=== PATIENT | female | born 1985 | race Caucasian/White ===

== ENCOUNTER → 2019-05-24 14:39 | Outpatient (CLI) | payer MEDICAID, SELFPAY ==
--- NOTE | 2019-05-24 14:41 | US_ITS ---
US transvaginal HISTORY: Dysfunctional uterine bleeding ITS.REASON: DUB ORDERING PHYSICIAN: Dereck Vail MD PATIENT AGE: 34 years Comparison: None FINDINGS: The uterus is 9 x 4.5 x 5 cm with a combined endometrial thickness of 15 mm. The cervix is enlarged measuring approximately 5 cm and is hypervascular with some heterogeneous echogenicity. Right ovary is 4 x 2.5 cm. Left ovary is 5 x 3 cm. There is a 2 cm cyst on the right ovary and there are several small cysts on the left ovary measuring up to 1.9 cm. There is trace amount of cul-de-sac fluid. IMPRESSION: 1. Bulky uterus with thickened endometrium 2. Enlarged cervix/cervical mass. Correlation with physical exam suggested 3. Small bilateral ovarian cysts with trace fluid in the cul-de-sac
== END ==
PROVIDERS: Visit Provider Obstetrics & Gynecology
DX: N93.8 Other specified abnormal uterine and vaginal bleeding (principal)
CPT/HCPCS: 76830

== ENCOUNTER → 2019-12-23 09:29 | Outpatient (CLI) | payer MEDICAID, SELFPAY ==
--- NOTE | 2019-12-23 09:49 | US_ITS ---
PROCEDURE: US ABDOMEN LIMITED CLINICAL INDICATION: MILD TRANSAMINITIS,CERVICAL CA Cervical cancer, elevated liver enzymes COMPARISON: No exams were available for comparison FINDINGS: PANCREAS: Unremarkable. No obvious mass or abnormal fluid collection. No ductal dilatation LIVER: There is diffuse increased echogenicity of the liver consistent with fatty liver. No focal liver lesions demonstrated. Homogeneous echogenicity. No intrahepatic biliary ductal dilatation evident. There is appropriate direction of blood flow within a non dilated portal vein RIGHT KIDNEY: Unremarkable. Normal size and echogenicity. No hydronephrosis GALLBLADDER: Prior cholecystectomy. Common bile duct is normal at 4 mm. IMPRESSION: Status post cholecystectomy. Hepatic steatosis Dictated by: Nino Lizama MD 12/23/2019 15:55 Electronically signed by Nino Lizama MD in [place] 12/23/2019 15:55
[2019-12-23 12:05] LABS: Albumin Level 3.9 g/dL (3.4-5.0); Albumin/Globulin Ratio 1.1 (1.1-1.8); Alkaline Phosphatase 103 U/L (46-116); Anion Gap 15.9 mEq/L (5-15); Aspartate Amino Transferase 152 U/L (15-37); Bilirubin,Total 0.3 mg/dL (0.2-1.0); Blood Urea Nitrogen 8 mg/dL (7-18); Calcium 8.9 mg/dL (8.5-10.1); Carbon Dioxide 24 mmol/L (21.0-32.0); Chloride 106 mmol/L (98-107); Creatinine,Serum 0.81 mg/dL (0.55-1.02); Estimated Glomerular Filt Rate 80 ml/min (>60); GFR (African American) 97 ML/MIN (>60); Globulin 3.7 gm/dl (1.3-3.2); Glucose 86 mg/dL (74-106); Sodium 141 mmol/L (137-145); Total Protein,Serum 7.6 g/dL (6.4-8.2)
[2019-12-23 12:11] LABS: Alanine Aminotransferase 127 U/L (9-52); Potassium 4.9 mmoL/L (3.5-5.1)
[2019-12-24 09:34] LABS: Hep A Ab, IgM Negative (Negative); Hepatitis B Core Antibody IgM Negative (Negative); Hepatitis B Surface Antigen Negative (Negative)
[2019-12-24 19:12] LABS: Hepatitis C Antibody <0.1 s/co ratio (0.0-0.9)
== END ==
PROVIDERS: Visit Provider Obstetrics & Gynecology Gynecologic Oncology
DX: C53.9 Malignant neoplasm of cervix uteri, unspecified (principal); R74.0 Nonspecific elevation of levels of transaminase and lactic acid dehydrogenase [LDH]
CPT/HCPCS: 36415; 76705; 80053; 80074

== ENCOUNTER 2020-06-20 14:36 | Emergency (ER) | payer MEDICAID, SELFPAY ==
[2020-06-20 14:37] VITALS: BP 135/94; PULSE 101; RESP 19; TEMP 36.8; O2SAT 98; BMI 26.6
--- NOTE | 2020-06-20 14:59 | HMH.EDUTC ---
[facility] [place] Disposition Clinical Impression: Sinusitis Qualifiers: Sinusitis location: unspecified location Chronicity: unspecified Qualified Code(s): J32.9 - Chronic sinusitis, unspecified Disposition: Home, Self-Care Condition on Discharge: Good Instructions: Sinusitis, Sinus Headache, DI for Sinusitis, Preventing the Spread of Coronavirus Discharge Instructions Additional Instructions: *Monitor Temp, Over the counter Motrin or Tylenol as directed/as needed Tylenol every 4 hours and Motrin every 6 hours (as long as your family doctor has told you that you can take it) for fever or pain. and straight to ER if unable to lower temp less than 101.0 after medication given *Warm salt water gargles may help to soothe the throat *Throat Lozenges *Warm fluids like tea with honey may help to soothe the throat *Sleep elevated *Humidifier/Vaporizer *Flonase 2 sprays in each nostril daily but be aware that it may take 2-3 days before you notice improvement You was tested for COVID and given handout with instructions on how to Self Quarantine while waiting your test results and how to Self isolate if you test is positive make sure to follow instructions carefully Call back to the [facility] tomorrow for your test results and you may return to work after negative results Your throat swab was sent for culture. Those results are typically sent to your primary care. Be sure to follow up in 2-3 days with your family doctor/primary care physician if no improvement so they can review those result and treat if necessary. If you don?t have a primary care doctor, I recommend you get one but in the mean time, you will have to return to a walk in clinic Follow up IMMEDIATELY for new or worsening symptoms or no Noticeable improvement over the next 48-72 hours. 911 for difficulty breathing or swallowing Prescriptions: Fluticasone Propionate [Flonase 50mcg nasal spray 16gm] 1 - 2 spr NS DAILY #1 bottle Transmission Status: Sent to [facility] methylPREDNISolone [Medrol 4mg tab] 4 mg PO DIRECTED #21 tab Transmission Status: Sent to [facility] Azithromycin [Z-Jamaal 250mg Tab] 250 mg PO DIRECTED #6 tab Transmission Status: Sent to [facility] Referrals: Holli Zapata MD [Primary Care Provider] - As needed Forms: Work/School Release Medical Decision Making - Hugh Inquiry Pt receiving controlled substance: No Hugh was queried for this patient: No Vital Signs: 06/20/20 14:37 Temperature 98.2 F Temperature Source Oral Pulse Rate [Right] 101 H Respiratory Rate 19 Blood Pressure [Right Arm] 135/94 H Blood Pressure Mean [Right Arm] 107 02 Sat by Pulse Oximetry 98 - Lab Data Lab results reviewed: Yes: I reviewed the patient's lab results. Lab Results 06/20/20 14:54: Strep Scn Rapid Clinic Negative Orders (Tests/Meds): ORDERS Category Date Time Status Coronavirus 19 Swab (OUTPT) Routine Lab 06/20/20 15:05 Ordered Strep Screen Confirmation Stat Micro 06/20/20 14:54 Received [facility] [place] HPI - General Stated complaint: Congestion; Headache Time Seen by Provider: 06/20/20 14:59 Mode of Arrival: Ambulatory Limitations: No Limitations Description of Symptoms (Recalled from Triage Doc. 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
[2020-06-20 15:03] LABS: UTC Strep Screen (Rapid) Negative (Negative)
[2020-06-20 15:27] VITALS: BP 124/85; PULSE 87; RESP 17; TEMP 36.7; O2SAT 100
== END 2020-06-20 15:28 | disposition home or self-care (01) ==
PROVIDERS: Emergency Provider Nurse Practitioner; PCP Family Medicine
DX: J32.9 Chronic sinusitis, unspecified (principal); Z20.828 Contact with and (suspected) exposure to other viral communicable diseases; F17.210 Nicotine dependence, cigarettes, uncomplicated; Z88.0 Allergy status to penicillin
CPT/HCPCS: 87880; 99202; U0003

== ENCOUNTER → 2020-07-16 15:27 | Outpatient (CLI) | payer MEDICAID, SELFPAY ==
[2020-07-20 13:10] LABS: Covid-19 Nasal PCR Sendout Lex Indeterminate
== END ==
PROVIDERS: PCP Family Medicine; Visit Provider Nurse Practitioner Family
DX: Z03.818 Encounter for observation for suspected exposure to other biological agents ruled out (principal)
CPT/HCPCS: U0004

== ENCOUNTER → 2020-07-21 19:53 | Outpatient (CLI) | payer MEDICAID, SELFPAY ==
[2020-07-23 11:59] LABS: Covid-19 Nasal PCR Sendout UK DETECTED
== END ==
PROVIDERS: PCP Family Medicine; Visit Provider Nurse Practitioner Family
DX: Z20.828 Contact with and (suspected) exposure to other viral communicable diseases (principal); U07.1 COVID-19
CPT/HCPCS: U0003

== ENCOUNTER 2020-12-04 09:10 | Emergency (ER) | payer MEDICAID, SELFPAY ==
[2020-12-04 09:10] VITALS: BP 136/77; PULSE 77; RESP 20; TEMP 36.1; O2SAT 97; BMI 27.4
--- NOTE | 2020-12-04 09:26 | HMH.EDUTC ---
[facility] [place] Disposition Clinical Impression: Exposure to COVID-19 virus Disposition: Home, Self-Care Condition on Discharge: Good Instructions: Preventing the Spread of Coronavirus Discharge Instructions Additional Instructions: Drink plenty of fluids. Take tylenol for pain or fever. Return if you begin to have difficulty breathing. Follow up with your regular doctor. GO TO THE ER FOR ANY WORSENING SYMPTOMS Referrals: Holli Zapata MD [Primary Care Provider] - Time of Disposition: 09:27 Medical Decision Making - Medical Records Medical records reviewed: No: I reviewed the patient's medical records. - Hugh Inquiry Pt receiving controlled substance: No Vital Signs: 12/04/20 09:10 12/04/20 09:33 Temperature 97.0 F L 97.0 F L Temperature Source Temporal Artery Scan Pulse Rate 77 Pulse Rate [Right Brachial] 77 Respiratory Rate 20 20 Blood Pressure 136/77 Blood Pressure [Right Arm] 136/77 Blood Pressure Mean [Right Arm] 96 Blood Pressure Source [Right Arm] Automatic Cuff Blood Pressure Position [Right Arm] Sitting 02 Sat by Pulse Oximetry 97 Oxygen Delivery Method Room Air Orders (Tests/Meds): ORDERS Category Date Time Status Covid-19 Nasal PCR Sendout P&C Routine Lab 12/04/20 09:20 Received [facility] [place] HPI - General Stated complaint: covid test Time Seen by Provider: 12/04/20 09:15 - History of Present Illness Provider Complaint: She states that she has been exposed to covid-19. She denies any symptom so far. - Related Data Previous Rx's Medication Instructions Recorded oseltamivir 75 mg capsule 75 mg PO BID 5 Days #10 cap 11/11/18 Azithromycin [Z-Jamaal 250mg Tab] 250 mg PO DIRECTED #6 tab 06/20/20 Fluticasone Propionate [Flonase 1 - 2 spr NS DAILY #1 bottle 06/20/20 50mcg nasal spray 16gm] methylPREDNISolone [Medrol 4mg 4 mg PO DIRECTED #21 tab 06/20/20 tab] Allergies Allergy/AdvReac Type Severity Reaction Status Date / Time Penicillins Allergy Verified 12/04/20 09:33 [facility] History - Hepatitis A Screen Attestation statement:: This patient has been screened for Hepatitis A risk factors. I have reviewed the patient's past medical history: Yes Amputation: No Fractures: No Comment: MÓNICA. CHOLY---2002. P* C/S----2002. R C/S, PPBTL----2006 - Social History Smoking Status: Current every day smoker Alcohol Intake: never Alcohol Intake Frequency:: other Substance Use Type: denies use Occupational Status: employed Family Hx:: No significant family history ROS Obtained: Yes All systems reviewed & no additional complaints - Constitutional Constitutional: Reports system reviewed and no additional complaints, except as docu - Eyes Eyes: Reports system reviewed and no additional complaints, except as docu - ENT Ears, Nose, Mouth, and Throat: Reports system reviewed and no additional complaints, except as docu - Cardiovascular Cardiovascular: Reports system reviewed and no additional complaints, except as docu - Respiratory Respiratory: Reports system reviewed and no additional complaints, except as docu - Gastrointestinal Gastrointestingal: Reports: system reviewed and no additional complaints, except as docu Physical Exam - General General appearance: alert, in no apparent distress - Head Head exam: atraumatic, normocephalic, normal inspection - Eye Eye exam: Present: normal appearance, PERRL, EOMI - ENT ENT exam: Present: normal exam, normal oropharynx, mucous membranes moist, TM's normal bilaterally, normal external ear exam - Neck Neck exam: Present: normal inspection, full ROM, trachea midline. Absent: meningismus, lymphadenopathy - Chest Chest inspection: Present: normal inspection, symmetric chest wall rise. Absent: tenderness - Respiratory Respiratory exam: Present: normal lung sounds bilaterally. Absent: respiratory distress - Cardiovascular Cardiovascular exam: Present: regular rate, normal rhyt
[2020-12-04 09:33] VITALS: BP 136/77; PULSE 77; RESP 20; TEMP 36.1; O2SAT 97
[2020-12-05 11:02] LABS: Covid-19 Nasal PCR Sendout P&C Negative
== END 2020-12-04 09:36 | disposition home or self-care (01) ==
PROVIDERS: Nurse Practitioner Family; Emergency Provider Emergency Medicine; PCP Family Medicine
DX: Z20.822 Contact with and (suspected) exposure to COVID-19 (principal); F17.210 Nicotine dependence, cigarettes, uncomplicated; Z88.0 Allergy status to penicillin
CPT/HCPCS: 99202; G0463; U0004

== ENCOUNTER 2021-06-13 09:24 | Emergency (ER) | payer MEDICAID, SELFPAY ==
[2021-06-13 09:25] VITALS: BP 155/97; PULSE 86; RESP 18; TEMP 36.8; O2SAT 98; BMI 26.9
--- NOTE | 2021-06-13 09:51 | HMH.EDUTC ---
[facility] Disposition Clinical Impression: Viral syndrome, Bronchitis Disposition: Home, Self-Care Condition on Discharge: Good Instructions: Acute Bronchitis, DI for COVID-19 (Suspected or Confirmed ), Preventing the Spread of Coronavirus Discharge Instructions Additional Instructions: Drink plenty of fluids. Take tylenol or ibuprofen for pain or fever. Take the medications as directed. Follow up with your regular doctor. GO TO THE ER FOR ANY WORSENING SYMPTOMS Prescriptions: Brompheniramine/Pseudoephed/Dm [Bromfed Dm Cough Syrup] 5 ml PO Q6HP PRN #240 syrup PRN Reason: Cough Transmission Status: Received by [facility] Azithromycin [Z-Jamaal 250mg Tab*] 250 mg PO UD DOSE PK #6 tab Transmission Status: Received by [facility] Referrals: Holli Zapata MD [Primary Care Provider] - Forms: Work/School Release Time of Disposition: 10:35 Medical Decision Making - Medical Records Medical records reviewed: No: I reviewed the patient's medical records. - Hugh Inquiry Pt receiving controlled substance: No Vital Signs: 06/13/21 09:25 06/13/21 10:12 Temperature 98.3 F 98.3 F Temperature Source Oral Pulse Rate 86 Pulse Rate [Left Brachial] 86 Respiratory Rate 18 18 Blood Pressure 155/97 H Blood Pressure [Left Arm] 155/97 H Blood Pressure Mean [Left Arm] 116 Blood Pressure Source [Left Arm] Automatic Cuff Blood Pressure Position [Left Arm] Sitting 02 Sat by Pulse Oximetry 98 Oxygen Delivery Method Room Air - Lab Data Lab Results 06/13/21 09:58: Strep Scn Rapid Clinic Negative 06/13/21 10:00: Chlamy pneumoniae PCR Not detected, Adenovirus (PCR) Not detected, B. pertussis DNA (PCR) Not detected, Coronavirus OC43 (PCR) Not detected, Coronavirus HKU1 (PCR) Not detected, Coronavirus 229E (PCR) Not detected, Coronavirus NL63 (PCR) Not detected, Human Metapneumovir PCR Not detected, Influenza A (H1) PCR Not detected, Influ A (H1N1/09) PCR Not detected, Influenza A (H3) PCR Not detected, Influenza Type A (PCR) Not detected, Influenza Type B (PCR) Not detected, M. pneumoniae (PCR) Not detected, Parainfluenza 1 (PCR) Not detected, Parainfluenza 2 (PCR) Not detected, Parainfluenza 3 (PCR) Not detected, Parainfluenza 4 (PCR) Not detected, RSV (PCR) Not detected, Entero/Rhino (PCR) Not detected 06/13/21 10:00: SARS-CoV-2 (PCR) Not detected, Influenza A Untype (PCR) Not detected, Influenza Type B (PCR) Not detected Orders (Tests/Meds): ORDERS Category Date Time Status Strep Screen Confirmation Stat Micro 06/13/21 09:58 Received [facility] HPI - General Stated complaint: Headache , cough Time Seen by Provider: 06/13/21 09:51 - History of Present Illness Provider Complaint: She c/o 2 days of having a cough and a head ache. She has felt bad and she has had nausea at times. She denies any fever/chills/body aches. - Related Data Previous Rx's Medication Instructions Recorded oseltamivir 75 mg capsule 75 mg PO BID 5 Days #10 cap 11/11/18 Azithromycin [Z-Jamaal 250mg Tab] 250 mg PO DIRECTED #6 tab 06/20/20 Fluticasone Propionate [Flonase 1 - 2 spr NS DAILY #1 bottle 06/20/20 50mcg nasal spray 16gm] methylPREDNISolone [Medrol 4mg 4 mg PO DIRECTED #21 tab 06/20/20 tab] Azithromycin [Z-Jamaal 250mg Tab*] 250 mg PO UD DOSE PK #6 tab 06/13/21 Brompheniramine/Pseudoephed/Dm 5 ml PO Q6HP PRN #240 syrup 06/13/21 [Bromfed Dm Cough Syrup] Allergies Allergy/AdvReac Type Severity Reaction Status Date / Time Penicillins Allergy Verified 12/04/20 09:33 [facility] History - Hepatitis A Screen Attestation statement:: This patient has been screened for Hepatitis A risk factors. I have reviewed the patient's past medical history: Yes Amputation: No Fractures: No Comment: LAP. BOYER---2002. P* C/S----2002. R C/S, PPBTL----2006 - Social History Smoking Status: Current every day smoker Alcohol Intake: never Alcohol Intake Frequency:: other Substance Use Type: renard
[2021-06-13 10:11] LABS: UTC Strep Screen (Rapid) Negative (Negative)
[2021-06-13 10:12] VITALS: BP 155/97; PULSE 86; RESP 18; TEMP 36.8; O2SAT 98
[2021-06-13 10:15] LABS: Adenovirus,PCR Not Detected (NotDetected); Bordetella Pertussis Not Detected (NotDetected); Chlamydophila Pneumoniae, PCR Not Detected (NotDetected); Coronavirus 19, PCR Not Detected (NotDetected); Coronavirus 229E Not Detected (NotDetected); Coronavirus NL63 Not Detected (NotDetected); Coronavirus OC43 Not Detected (NotDetected); Coronovirus HKU1,PCR Not Detected (NotDetected); Human Metapneumovirus Not Detected (NotDetected); Influenza A, PCR Not Detected (NotDetected); Influenza AH1, 2009 Not Detected (NotDetected); Influenza AH1, PCR Not Detected (NotDetected); Influenza AH3,PCR Not Detected (NotDetected); Influenza B, PCR Not Detected (NotDetected); Mycoplasma Pneumoniae, PCR Not Detected (NotDetected); Parainfluenza 1, PCR Not Detected (NotDetected); Parainfluenza 2, PCR Not Detected (NotDetected); Parainfluenza 3, PCR Not Detected (NotDetected); Parainfluenza 4, PCR Not Detected (NotDetected); Respiratory Syncytial Virus Not Detected (NotDetected); Rhinovirus/Enterovirus Not Detected (NotDetected)
== END 2021-06-13 10:39 | disposition home or self-care (01) ==
PROVIDERS: Emergency Provider Nurse Practitioner Family; PCP Family Medicine
DX: J20.9 Acute bronchitis, unspecified (principal); B34.9 Viral infection, unspecified; F17.210 Nicotine dependence, cigarettes, uncomplicated; Z88.0 Allergy status to penicillin
CPT/HCPCS: 87486; 87581; 87633; 87798; 87880; 99203; G0463; U0003

== ENCOUNTER 2021-08-29 09:24 | Emergency (ER) | payer MEDICAID, SELFPAY ==
[2021-08-29 09:26] VITALS: BP 147/77; PULSE 95; RESP 18; TEMP 36.8; O2SAT 97; BMI 26.6
--- NOTE | 2021-08-29 10:02 | HMH.EDUTC ---
[facility] [place] Disposition Clinical Impression: Exposure to COVID-19 virus, Bronchitis Disposition: Home, Self-Care Condition on Discharge: Good Instructions: Preventing the Spread of Coronavirus Discharge Instructions, How to Care for Someone with COVID-19, DI for COVID-19 (Suspected or Confirmed ) Additional Instructions: covid swab was sent to lab, call later today for results. self isolate until test results are known to be negative No sign of a bacterial infection. Likely viral. Viruses can take 7-14 days to run their course. Nasal saline and bulb syringe or nose Alis to remove nasal drainage to help with nasal congestion. Hard to eat, drink, sleep with nasal congestion so important to keep this cleaned out. Monitor temp. Tylenol or Motrin as needed for pain or fever Encourage fluids, water, Gatorade, Powerade, Pedialyte if /toddler/child Warm salt water gargles Warm fluids Sore throat lozenges Sleep elevated Humidifier/vaporizer Follow-up immediately for new or worsening symptoms or no noticeable improvement over the next 48-72 hours. Prescriptions: predniSONE [Prednisone 20mg Tab] 20 mg PO BID #10 tab Transmission Status: Pending to [facility] Referrals: Holli Zapata MD [Primary Care Provider] - Medical Decision Making - Hugh Inquiry Pt receiving controlled substance: No Vital Signs: 08/29/21 09:26 Temperature 98.3 F Temperature Source Oral Pulse Rate [Right Radial] 95 H Respiratory Rate 18 Blood Pressure [Right Arm] 147/77 H Blood Pressure Mean [Right Arm] 100 Blood Pressure Source [Right Arm] Automatic Cuff Blood Pressure Position [Right Arm] Sitting 02 Sat by Pulse Oximetry 97 Oxygen Delivery Method Room Air Orders (Tests/Meds): ORDERS Category Date Time Status Covid-19 Nasal PCR ([facility]) Routine Lab 08/29/21 09:40 Received [facility] [place] HPI - General Chief complaint: [facility] Stated complaint: diarr, head, abel, R Nose, taste Time Seen by Provider: 08/29/21 10:02 Mode of Arrival: Ambulatory Source of Information: Patient Limitations: No Limitations Description of Symptoms (Recalled from Triage Doc. by RN): Pt c/o congestion, SOTO (x1 week), cough, stomach ache, sore throat, bodyaches, SOA, distorted taste HEENT Symptoms (Recalled from RN notes): Yes (sore throat) Resp Symptoms (Recalled from RN notes): Yes (cough, soa, congestion) Skin Symptoms (Recalled from RN notes): No MS Symptoms (Recalled from RN notes): Yes (bodyaches) Functional Status (Recalled from RN notes): n/a - History of Present Illness Provider Complaint: 36 yr old female presents for Pt congestion, SOTO (x1 week), cough, stomach ache, sore throat, bodyaches, SOA, distorted taste for 1 week. pt states she was exposed to family member 3 days prior to her testing positive for covid - Related Data Previous Rx's Medication Instructions Recorded oseltamivir 75 mg capsule 75 mg PO BID 5 Days #10 cap 11/11/18 Azithromycin [Z-Jamaal 250mg Tab] 250 mg PO DIRECTED #6 tab 06/20/20 Fluticasone Propionate [Flonase 1 - 2 spr NS DAILY #1 bottle 06/20/20 50mcg nasal spray 16gm] methylPREDNISolone [Medrol 4mg 4 mg PO DIRECTED #21 tab 06/20/20 tab] Azithromycin [Z-Jamaal 250mg Tab*] 250 mg PO UD DOSE PK #6 tab 06/13/21 Brompheniramine/Pseudoephed/Dm 5 ml PO Q6HP PRN #240 syrup 06/13/21 [Bromfed Dm Cough Syrup] predniSONE [Prednisone 20mg 20 mg PO BID #10 tab 08/29/21 Tab] Allergies Allergy/AdvReac Type Severity Reaction Status Date / Time Penicillins Allergy Verified 12/04/20 09:33 - Worker's Comp Is this a Worker's Comp case?: No [facility] History - Hepatitis A Screen Drug use history?: No High risk sexual behaviors?: No History of sexually transmitted infection?: No Currently employed?: No Childcare worker?: No Do you have indoor plumbing?: Yes Do you have electricity?: Yes Attestation statement:: This patient has been screened for Hepatitis A risk factors. Amput
[2021-08-29 10:29] VITALS: BP 147/77; PULSE 95; RESP 18; TEMP 36.8; O2SAT 97
== END 2021-08-29 10:30 | disposition home or self-care (01) ==
PROVIDERS: Emergency Provider Nurse Practitioner Family; PCP Family Medicine
DX: J20.9 Acute bronchitis, unspecified (principal); Z20.822 Contact with and (suspected) exposure to COVID-19
CPT/HCPCS: 99202; C9803; G0463; U0003; U0005

== ENCOUNTER → 2021-10-14 12:16 | Outpatient (CLI) | payer MEDICAID, SELFPAY | PROVIDERS: Visit Provider Nurse Practitioner | DX: U07.1 COVID-19 (principal) | CPT/HCPCS: C9803; U0003; U0005 ==

== ENCOUNTER 2021-11-06 09:19 | Emergency (ER) | payer MEDICAID, SELFPAY ==
[2021-11-06 10:20] VITALS: BP 126/80; PULSE 62; RESP 18; TEMP 36.6; O2SAT 96; BMI 30.2
--- NOTE | 2021-11-06 10:49 | HMH.EDUTC ---
[facility] [place] Disposition Clinical Impression: Sinusitis Qualifiers: Sinusitis location: unspecified location Chronicity: unspecified Qualified Code(s): J32.9 - Chronic sinusitis, unspecified Conjunctivitis Qualifiers: Conjunctivitis type: unspecified Laterality: left Qualified Code(s): H10.9 - Unspecified conjunctivitis Disposition: Home, Self-Care Condition on Discharge: Good Instructions: Sinusitis, DI for Sinusitis, DI for Conjunctivitis, Conjunctivitis Additional Instructions: *Monitor Temp, Over the counter Motrin or Tylenol as directed/as needed Tylenol every 4 hours and Motrin every 6 hours (as long as your family doctor has told you that you can take it) for fever or pain. and straight to ER if unable to lower temp less than 101.0 after medication given *Warm salt water gargles may help to soothe the throat *Throat Lozenges *Warm fluids like tea with honey may help to soothe the throat *Sleep elevated *Humidifier/Vaporizer Wash hands before and after applying drops to eye Use drops as prescribed Return if needed Follow up IMMEDIATELY for new or worsening symptoms or no Noticeable improvement over the next 48-72 hours. 911 for difficulty breathing or swallowing Prescriptions: methylPREDNISolone [Medrol 4mg tab] 4 mg PO DIRECTED #21 tab Transmission Status: Pending to [facility] Polymyxin B Sulf/Trimethoprim [Polytrim Eye Drops] 2 drops EYE-LEFT Q6H 7 Days #10 ml Transmission Status: Pending to [facility] Azithromycin [Z-Jamaal 250mg Tab] 250 mg PO DIRECTED #6 tab Transmission Status: Pending to [facility] Referrals: Holli Zapata MD [Primary Care Provider] - As needed Forms: Work/School Release Time of Disposition: 11:00 Medical Decision Making - Hugh Inquiry Pt receiving controlled substance: No Hugh was queried for this patient: No Vital Signs: 11/06/21 10:20 Temperature 97.8 F Temperature Source Oral Pulse Rate [Right Brachial] 62 Respiratory Rate 18 Blood Pressure [Right Arm] 126/80 Blood Pressure Mean [Right Arm] 95 Blood Pressure Source [Right Arm] Automatic Cuff Blood Pressure Position [Right Arm] Sitting 02 Sat by Pulse Oximetry 96 Oxygen Delivery Method Room Air - Lab Data Lab results reviewed: Yes: I reviewed the patient's lab results. [facility] [place] HPI - General Stated complaint: sore throat, cough,headache,eye redness Time Seen by Provider: 11/06/21 10:49 Mode of Arrival: Ambulatory Source of Information: Patient Limitations: No Limitations Description of Symptoms (Recalled from Triage Doc. 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 that strep and pink eye has been going around States that she has been having sinus congestion and pressure and sore scratchy throat and when she woke up this morning her left eye was matted shut so she came in to get checked out - Related Data Previous Rx's Medication Instructions Recorded Azithromycin [Z-Jamaal 250mg Tab] 250 mg PO DIRECTED #6 tab 11/06/21 Polymyxin B Sulf/Trimethoprim 2 drops EYE-LEFT Q6H 7 Days #10 ml 11/06/21 [Polytrim Eye Drops] methylPREDNISolone [Medrol 4mg 4 mg PO DIRECTED #21 tab 11/06/21 tab] Allergies Allergy/AdvReac Type Severity Reaction Status Date / Time Penicillins Allergy Verified 12/04/20 09:33 - Worker's Comp Is this a Worker's Comp case?: No [facility] History - Hepatitis A Screen Drug use history?: No High risk sexual behaviors?: No History of sexually transmitted infection?: No Currently employed?: No Childcare worker?: No Do you have indoor plumbing?: Yes Do you have electricity?
[2021-11-06 11:03] VITALS: BP 126/80; PULSE 62; RESP 18; TEMP 36.6; O2SAT 96
== END 2021-11-06 11:10 | disposition home or self-care (01) ==
PROVIDERS: Emergency Provider Nurse Practitioner; PCP Family Medicine
DX: J32.9 Chronic sinusitis, unspecified (principal); H10.32 Unspecified acute conjunctivitis, left eye
CPT/HCPCS: 99202; G0463

== ENCOUNTER → 2021-12-17 09:50 | Outpatient (CLI) | payer MEDICAID, SELFPAY ==
[2021-12-18 08:35] LABS: Covid-19 Nasal PCR Sendout Lex NOT DETECTED
== END ==
PROVIDERS: Visit Provider Nurse Practitioner
DX: Z20.822 Contact with and (suspected) exposure to COVID-19 (principal)
CPT/HCPCS: C9803; U0004; U0005

== ENCOUNTER → 2022-11-19 11:18 | Outpatient (CLI) | payer MEDICAID, SELFPAY | PROVIDERS: PCP Nurse Practitioner Family; Visit Provider Nurse Practitioner Family | DX: R05.9 Cough, unspecified (principal) | CPT/HCPCS: C9803; U0003; U0005 ==

== ENCOUNTER 2022-11-30 13:39 | Emergency (ER) | payer MEDICAID, SELFPAY ==
[2022-11-30 14:30] VITALS: BP 141/86; PULSE 86; RESP 18; TEMP 36.6; O2SAT 98; BMI 29.7
--- NOTE | 2022-11-30 14:57 | EXP.UTC ---
Discharge Plan Disposition Patient Disposition: Home, Self-Care Condition: Good Prescriptions Prescriptions: New tobramycin-dexamethasone [TobraDex] 0.3-0.1 % drops,suspension 1 - 2 drp ophthalmic (eye) QID 5 Days Qty: 5 0RF No Action citalopram 20 mg tablet 20 mg PO DAILY estradiol 1 mg tablet 1 mg PO DAILY Rx Instructions: off 1 week; repeat cycle azithromycin [Zithromax] 250 mg tablet See Rx Instructions PO .COMPLEX Qty: 6 0RF Rx Instructions: For 250 mg dose pack: take 500 mg today (day 1), then 250 mg for 4 days (days 2-5) PO Referrals Follow up/Referrals: Annamaria Whitten [Primary Care Provider] - See instructions Activity Restrictions/Add. Instructions Additional Instructions/Restrictions: Wash hands before and after applying drops to eye Use drops as prescribed Follow up with Eye Doctor if no improvement or any worsening of symptoms Return if needed Straight to ER if any life threatening symptoms Clinical Impressions Clinical Impression: Conjunctivitis Stand Alone Forms Stand Alone Forms: Work/School Release Instructions Patient Instructions: DI for Conjunctivitis, Conjunctivitis, Tobramycin Ophthalmic Discharge ED Provider: Amy Berkowitz [facility] General Stated complaint: LT eye redness w/ drainage Mode of Arrival: Ambulatory Source of Information: Patient Limitations: No Limitations Time Seen by Provider: 11/30/22 14:57 Description of Symptoms (Recalled from Triage Doc. 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 States that she woke up this morning with her left eye swollen, matted itching and burning with drainage States that it has continued throughout the day so this evening she came in Related Data Home Medications Medication Instructions Recorded Confirmed citalopram 20 mg tablet 20 mg PO DAILY 11/19/22 11/19/22 estradiol 1 mg tablet 1 mg PO DAILY 11/19/22 11/19/22 Previous Rx's Medication Instructions Recorded azithromycin 250 mg tablet See Rx Instructions PO .COMPLEX #6 11/19/22 (Zithromax) tabs tobramycin 0.3 %-dexamethasone 0.1 1 - 2 drp ophthalmic (eye) QID 5 11/30/22 % eye drops,suspension (TobraDex) days #5 mL Allergies Allergy/AdvReac Type Severity Reaction Status Date / Time Penicillins Allergy Verified 11/19/22 08:42 Worker's Comp Is this a Worker's Comp case?: No [facility] Disclaimer: The information contained in this section may have been updated after the patient was seen, as this information can be updated by other users. Medical History (Updated 11/30/22 @ 15:13 by Amy Berkowitz APRN) Cancer Surgical History (Updated 11/30/22 @ 14:43 by Bianca Figueroa RN) History of section History of cholecystectomy History of hysterectomy History of tubal ligation Social History (Updated 11/30/22 @ 14:48 by Bianca Figueroa RN) Smoking Status: Current every day smoker alcohol intake: never substance use type: denies use current occupational status: employed Travel in the last 8 weeks: None ROS Obtained: Yes All systems reviewed & no additional complaints except as documented and Yes Systems reviewed as appropriate & no additional complaints except as documented Constitutional Constitutional: Reports system reviewed and no additional complaints, except as documented and Reports as per HPI Eyes Eyes: Reports system reviewed and no additional complaints, except as documented, Reports as per HPI, Reports eye discharge, Reports irritation and Reports itchy eyes ENT Ears, Nose, Mouth, and Throat: Reports syste
[2022-11-30 15:06] VITALS: BP 141/86; PULSE 86; RESP 18; TEMP 36.6; O2SAT 98
== END 2022-11-30 15:20 | disposition home or self-care (01) ==
PROVIDERS: Emergency Provider Nurse Practitioner; PCP Family Medicine Sports Medicine
DX: H10.9 Unspecified conjunctivitis (principal)
CPT/HCPCS: 99212; 99213; G0463

== ENCOUNTER 2022-12-17 10:12 | Emergency (ER) | payer MEDICAID, SELFPAY ==
[2022-12-17] VITALS (7 sets, daily range): BP systolic 99–136; BP diastolic 60–93; PULSE 62–88; RESP 16–18; TEMP 36.5; O2SAT 94–100; BMI 30.7
--- NOTE | 2022-12-17 10:25 | CT_ITS ---
FINAL REPORT TECHNIQUE: After the administration of oral and intravenous contrast, axial images were obtained through the abdomen and pelvis by computed tomography. The study was performed with techniques to keep radiation dose as low as reasonably achievable, (ALARA). Individual dose reduction techniques using automated exposure control or adjustment of mA and/or kV according to the patient's size were employed. CLINICAL HISTORY: abdominal pain, RIGHT LOWER X 1 DAY COMPARISON: None FINDINGS: Abdomen: The lung bases are clear. There is mild diffuse fatty infiltration the liver. The gallbladder is absent. The spleen, pancreas, adrenals and kidneys appear unremarkable. There is a retroaortic left renal vein. The aorta is normal in caliber. There is no free fluid or adenopathy. Pelvis: The appendix is unremarkable. The urinary bladder is unremarkable. There is mild prominence of the mucosa within the hepatic flexure of the colon which may be related to segmental infectious/inflammatory colitis. There is also some mucosal thickening within the sigmoid colon which may be related to infectious/inflammatory colitis. IMPRESSION: Abnormal mucosal thickening of the hepatic flexure and sigmoid colon may be due to infectious/inflammatory colitis. No evidence of appendicitis. Reviewed, Interpreted and Dictated by Mika Sinclair MD Transcribed by Sonia Limon Authenticated and [facility]
[2022-12-17 10:29] LABS: Microscopic, Urine URINE MICROSCOPIC (MICROSCOPIC)
[2022-12-17 10:30] LABS: Appearance,Urine CLEAR (Clear); Bilirubin,Urine Negative (Negative); Blood, Urine Negative (Negative); Color,Urine YELLOW (Yellow); Glucose,Urine (UA) Negative (Negative); Ketones,Urine Negative (Negative); Leukocyte Esterase,Urine Negative (Negative); Nitrate,Urine Negative (Negative); PH,Urine 5.5 (5.0-8.5); Protein,Urine Negative (Negative); Specific Gravity, Urine >= 1.030 (1.005-1.030); Urobilinogen,Urine 0.2 EU/dl (0.2)
--- NOTE | 2022-12-17 10:38 | PC.NURSE ---
rad notified of Ct order
--- NOTE | 2022-12-17 10:38 | HMH.EDGENADL ---
Discharge Plan Disposition Patient Disposition: Home, Self-Care Prescriptions Prescriptions: New ciprofloxacin HCl 500 mg tablet 500 mg PO BID Qty: 20 0RF metronidazole [Flagyl] 375 mg capsule 375 mg PO TID 10 Days Qty: 30 0RF No Action citalopram 20 mg tablet 20 mg PO DAILY estradiol 1 mg tablet 1 mg PO DAILY Rx Instructions: off 1 week; repeat cycle Referrals Follow up/Referrals: Holli Zapata MD [Primary Care Provider] - See instructions Activity Restrictions/Add. Instructions Additional Instructions/Restrictions: Return for worsening pain swelling or any other concerns within 8 hours otherwise follow-up with your primary care physician within the next few days Clinical Impressions Clinical Impression: Colitis Instructions Patient Instructions: DI for Acute Abdominal Pain Discharge ED Provider: Phuc Dunbar General Adult HPI General Chief complaint: Abdominal Pain Stated complaint: Phys ref RT abd pain lower back pain Time Seen by Provider: 12/17/22 10:20 Mode of Arrival: Ambulatory Source of Information: Patient Limitations: No Limitations Description of Symptoms (Recalled from ER Triage Doc. by RN): Pt reports R lower quadrant pain radiating around to lower back, pt reports pain began thursday morning. Pt also reports n/v/d and low grade fever lastnight. Pt denies urinary symptoms. History of Present Illness HPI narrative: 37-year-old female presents with right lower quadrant pain for few days. She is in no acute distress nontoxic-appearing comfortable in the room. No fever no chills. She does have nausea vomiting and watery diarrhea. No bleeding per rectum. No chest pain or shortness of air. She was sent over from urgent care for tenderness in her right lower quadrant and to rule out appendicitis. No hematuria or dysuria no fevers. Related Data Home Medications Medication Instructions Recorded Confirmed citalopram 20 mg tablet 20 mg PO DAILY mood 11/19/22 12/17/22 estradiol 1 mg tablet 1 mg PO DAILY hormones 11/19/22 12/17/22 Previous Rx's Medication Instructions Recorded ciprofloxacin HCl 500 mg tablet 500 mg PO BID #20 tabs 12/17/22 metronidazole 375 mg capsule 375 mg PO TID 10 days #30 caps 12/17/22 (Flagyl) Allergies Allergy/AdvReac Type Severity Reaction Status Date / Time Penicillins Allergy Verified 12/17/22 09:10 [facility] Disclaimer: The information contained in this section may have been updated after the patient was seen, as this information can be updated by other users. Medical History Cancer Surgical History History of section History of cholecystectomy History of hysterectomy History of tubal ligation Social History Smoking Status: Current every day smoker alcohol intake: never substance use type: denies use current occupational status: employed Travel in the last 8 weeks: None ROS Obtained: Yes All systems reviewed & no additional complaints except as documented Constitutional Constitutional: Denies fatigue, Denies fever(s) and Denies headache(s) Eyes Eyes: Denies dry eyes ENT Ears, Nose, Mouth, and Throat: Denies headache(s) and Denies neck mass Cardiovascular Cardiovascular: Denies diaphoresis, Denies dyspnea and Denies edema Respiratory Respiratory: Denies cough and Denies dyspnea Gastrointestinal Gastrointestingal: Reports abdominal pain and nausea Genitourinary Female Genitourinary: Denies hematuria and Denies urinary incontinence Musculoskeletal Musculoskeletal: Denies joint swelling Integumentary/Breasts Skin/Breast: Denies dry skin Neurologic Neurologic: Denies headache(s) Endocrine Endocrine: Denies fatigue Allergic/Immunologic Allergic/Immunologic: Denies urticaria Physical Exam General General appearance: al
[2022-12-17 10:46] LABS: Basophils # 0.1 K/mm3 (0-0.2); Basophils % 1.2 % (0.1-2.0); Eosinophils # 0.2 K/mm3 (0.0-0.4); Eosinophils % 2.2 % (0.1-12.0); Hemoglobin 15.8 g/dL (12.2-16.2); Lymphocytes # 2.1 K/mm3 (0.7-4.5); Mean Corpuscular Hemoglobin 31.5 pg (27.0-31.2); Mean Corpuscular Volume 95.4 fl (81-99); Mean Platelet Volume 7.2 fl (7.4-10.4); Monocytes # 0.3 K/mm3 (0.1-1.0); Neutrophils # 6.1 K/mm3 (1.8-7.8); Neutrophils % 69.6 % (37.0-80.0); Platelet Count 283 K/mm3 (142-424); Red Blood Count 5.04 M/mm3 (4.20-5.40); Red Cell Distribution Width 12.7 % (11.5-17.5); White Blood Count 8.7 K/mm3 (4.8-10.8)
[2022-12-17 10:46] LABS: Bacteria,Urine Trace /lpf; Squamous Epithelial Cell,Urine Occasional #/hpf (0-5)
--- NOTE | 2022-12-17 11:07 | PC.NURSE ---
pt going to CT
[2022-12-17 11:20] LABS: Alanine Aminotransferase 98 U/L (12-78); Albumin Level 4.8 g/dl (3.5-5.0); Albumin/Globulin Ratio 1.5 (1.1-1.8); Alkaline Phosphatase 92 U/L (38-126); Anion Gap 12.2 mEq/L (5-15); Aspartate Amino Transferase 101 U/L (14-36); Bilirubin,Total 0.5 mg/dl (0.2-1.3); Blood Urea Nitrogen 10 mg/dl (7-17); Calcium 8.9 mg/dl (8.4-10.2); Carbon Dioxide 25 mmol/L (22.0-30.0); Chloride 107 mmol/L (98-107); Creatinine Clearance Estimated 153 mL/min (50-200); Estimated Glomerular Filt Rate 94 ml/min (>60); GFR (African American) 113 ML/MIN (>60); Globulin 3.1 g/dL (1.3-3.2); Glucose 86 mg/dl (74-100); Lipase 92 U/L (23-300); Potassium 4.2 mmoL/L (3.5-5.1); Sodium 140 mmol/L (136-145); Total Protein,Serum 7.9 g/dl (6.3-8.2)
--- NOTE | 2022-12-17 12:39 | PC.NURSE ---
contacted rad to check on status of CT report, states sending down preliminary report
== END 2022-12-17 12:59 | disposition home or self-care (01) ==
PROVIDERS: Emergency Provider Emergency Medicine; PCP Family Medicine
DX: K52.9 Noninfective gastroenteritis and colitis, unspecified (principal); R10.31 Right lower quadrant pain; Z85.9 Personal history of malignant neoplasm, unspecified; Z90.49 Acquired absence of other specified parts of digestive tract; Z90.710 Acquired absence of both cervix and uterus; Z98.51 Tubal ligation status; F17.210 Nicotine dependence, cigarettes, uncomplicated
CPT/HCPCS: 74177; 80053; 81001; 83690; 85025; 96360; 99285; Q9967

== ENCOUNTER → 2022-12-17 23:56 | Outpatient (CLI) | payer MEDICAID, SELFPAY | PROVIDERS: PCP Nurse Practitioner Family; Visit Provider Nurse Practitioner Family | DX: K52.9 Noninfective gastroenteritis and colitis, unspecified (principal) | CPT/HCPCS: 87086 ==

== ENCOUNTER → 2023-01-21 22:43 | Outpatient (CLI) | payer MEDICAID, SELFPAY | PROVIDERS: PCP Nurse Practitioner Family; Visit Provider Nurse Practitioner Family | DX: J02.9 Acute pharyngitis, unspecified (principal) | CPT/HCPCS: 87070 ==

== ENCOUNTER 2023-02-19 09:14 | Emergency (ER) | payer MEDICAID, SELFPAY ==
[2023-02-19] VITALS (7 sets, daily range): BP systolic 120–151; BP diastolic 72–89; PULSE 55–79; RESP 16–18; TEMP 36.4–36.6; O2SAT 96–100; BMI 28.8
--- NOTE | 2023-02-19 09:34 | CT_ITS ---
FINAL REPORT TECHNIQUE: Axial CT images of the abdomen and pelvis were obtained without intravenous contrast. Coronal reformatted images were also obtained.This study was performed with techniques to keep radiation doses as low as reasonably achievable (ALARA). Individualized dose reduction techniques using automated exposure control or adjustment of mA and/or kV according to the patient''s size were employed. CLINICAL HISTORY: Concern for left renal stone COMPARISON: 12/17/2022 FINDINGS: Abdomen: The lung bases are clear. There is no evidence of renal stone or hydronephrosis. There is mild right renal scarring. Post cholecystectomy. The liver, spleen and pancreas have an unremarkable, unenhanced appearance. No mass or adenopathy is seen. No inflammatory process is identified. Pelvis: The appendix is normal. Post hysterectomy. Mild bladder wall thickening, likely inflammatory. No ureteral stone. IMPRESSION: No renal or ureteral stone, or hydronephrosis. Mild bladder wall thickening, likely inflammatory. Reviewed, Interpreted and Dictated by Jose Anne III, MD Transcribed by Sonia Limon Authenticated and [facility]
[2023-02-19 09:42] LABS: Microscopic, Urine URINE MICROSCOPIC (MICROSCOPIC)
--- NOTE | 2023-02-19 09:42 | HMH.EDGENADL ---
Discharge Plan Disposition Patient Disposition: Home, Self-Care Condition: Good Prescriptions Prescriptions: New cefdinir 300 mg capsule 300 mg PO BID 10 Days Qty: 20 0RF No Action citalopram 20 mg tablet 20 mg PO DAILY estradiol 1 mg tablet 1 mg PO DAILY Rx Instructions: off 1 week; repeat cycle Referrals Follow up/Referrals: Holli Zapata MD [Primary Care Provider] - See instructions Clinical Impressions Clinical Impression: UTI (urinary tract infection), Left nephrolithiasis Instructions Patient Instructions: DI for Acute Abdominal Pain Discharge ED Provider: Avery Duckworth General Adult HPI General Chief complaint: Abdominal Pain Stated complaint: Lower back pain and lower left abd pain Time Seen by Provider: 02/19/23 09:19 History of Present Illness HPI narrative: This is a 38-year-old female with history of nephrolithiasis, cholecystectomy presenting with left flank pain. Patient states that today, left flank pain started and was severe in intensity, 8-10 out of 10, stabbing, did not radiate. Associate with nausea without vomiting, dark urine. Patient thought she had a UTI, so started taking Azo. Has had associated dysuria. Denies hematuria, hematochezia, diarrhea, fevers, chills, overlying skin changes, abnormal vaginal discharge or bleeding, or any other concerns. Related Data Home Medications Medication Instructions Recorded Confirmed citalopram 20 mg tablet 20 mg PO DAILY mood 11/19/22 01/21/23 estradiol 1 mg tablet 1 mg PO DAILY hormones 11/19/22 01/21/23 Previous Rx's Medication Instructions Recorded cefdinir 300 mg capsule 300 mg PO BID 10 days #20 caps 02/19/23 Allergies Allergy/AdvReac Type Severity Reaction Status Date / Time Penicillins Allergy Verified 01/21/23 08:19 [facility] Disclaimer: The information contained in this section may have been updated after the patient was seen, as this information can be updated by other users. Medical History (Updated 02/19/23 @ 12:31 by Avery Duckworth MD) Abdominal pain Bronchitis Cancer Colitis Conjunctivitis Conjunctivitis Exposure to COVID-19 virus Left otitis media Sinusitis Surgical History History of section History of cholecystectomy History of hysterectomy History of tubal ligation Social History Smoking Status: Current every day smoker alcohol intake: never substance use type: denies use current occupational status: employed Travel in the last 8 weeks: None ROS Obtained: Yes All systems reviewed & no additional complaints except as documented Physical Exam General General appearance: alert and in no apparent distress Head Head exam: atraumatic, normocephalic and normal inspection Eye Eye exam: Present normal appearance, PERRL and EOMI ENT ENT exam: Present normal exam, normal oropharynx, mucous membranes moist, TM's normal bilaterally and normal external ear exam Neck Neck exam: Present normal inspection, full ROM and trachea midline; Absent meningismus or lymphadenopathy Chest Chest inspection: Present normal inspection and symmetric chest wall rise; Absent tenderness Respiratory Respiratory exam: Present normal lung sounds bilaterally; Absent respiratory distress Cardiovascular Cardiovascular exam: Present regular rate and normal rhythm; Absent JVD Abdominal Exam Abdominal exam: Present soft and normal bowel sounds; Absent distention, tenderness or guarding Extremities Exam Extremities exam: Present normal inspection, full ROM and normal capillary refill; Absent calf tenderness Back Exam Back exam: Present normal inspection and CVA tenderness (L); Absent tenderness or CVA tenderness (R) Neurological Exam Neurological exam: Present alert and oriented X3 Psychiatric Psychiatric exam: Present normal affect and normal mood Skin Skin exam:
[2023-02-19 09:43] LABS: Appearance,Urine CLEAR (Clear); Bilirubin,Urine Negative (Negative); Blood, Urine Negative (Negative); Color,Urine YELLOW (Yellow); Glucose,Urine (UA) TRACE (Negative); Ketones,Urine Negative (Negative); Leukocyte Esterase,Urine Negative (Negative); Nitrate,Urine POSITIVE (Negative); Protein,Urine Negative (Negative); Specific Gravity, Urine 1.025 (1.005-1.030)
[2023-02-19 09:49] LABS: Basophils # 0.1 K/mm3 (0-0.2); Basophils % 0.5 % (0.1-2.0); Eosinophils # 0.1 K/mm3 (0.0-0.4); Eosinophils % 1.5 % (0.1-12.0); Hematocrit 44.7 % (37.0-47.0); Hemoglobin 14.8 g/dL (12.2-16.2); Lymphocytes % 34.6 % (10-50); Mean Corpuscular HGB Conc 33.1 g/dL (31.8-35.4); Mean Corpuscular Hemoglobin 31.5 pg (27.0-31.2); Mean Corpuscular Volume 95.4 fl (81-99); Mean Platelet Volume 7.3 fl (7.4-10.4); Monocytes # 0.4 K/mm3 (0.1-1.0); Monocytes % 4.1 % (1.7-9.3); Neutrophils # 5.1 K/mm3 (1.8-7.8); Neutrophils % 59.2 % (37.0-80.0); Platelet Count 273 K/mm3 (142-424); Red Blood Count 4.69 M/mm3 (4.20-5.40); Red Cell Distribution Width 12.7 % (11.5-17.5); White Blood Count 8.7 K/mm3 (4.8-10.8)
[2023-02-19 09:50] LABS: Chloride 104 mmol/L (98-107); Sodium 138 mmol/L (136-145)
[2023-02-19 09:51] LABS: Potassium 4.1 mmoL/L (3.5-5.1)
[2023-02-19 09:53] LABS: Alanine Aminotransferase 77 U/L (12-78); Alkaline Phosphatase 85 U/L (38-126); Anion Gap 16.1 mEq/L (5-15); Aspartate Amino Transferase 58 U/L (14-36); Bilirubin,Total 0.4 mg/dl (0.2-1.3); Blood Urea Nitrogen 12 mg/dl (7-17); Carbon Dioxide 22 mmol/L (22.0-30.0); Creatinine Clearance Estimated 147 mL/min (50-200); Estimated Glomerular Filt Rate 93 ml/min (>60); GFR (African American) 113 ML/MIN (>60); Squamous Epithelial Cell,Urine Occasional #/hpf (0-5)
[2023-02-19 09:54] LABS: Albumin Level 4.8 g/dl (3.5-5.0); Albumin/Globulin Ratio 1.6 (1.1-1.8); Calcium 9.6 mg/dl (8.4-10.2); Glucose 127 mg/dl (74-100); Lipase 169 U/L (23-300); Total Protein,Serum 7.8 g/dl (6.3-8.2)
--- NOTE | 2023-02-19 10:22 | PC.NURSE ---
Pt updated on plan of care. Awaiting CT results. No complaints at this time.
--- NOTE | 2023-02-19 11:35 | PC.NURSE ---
pt ambulating to restroom no complications
--- NOTE | 2023-02-19 12:06 | PC.NURSE ---
Called radiology to see about preliminary report, they are checking at this time
--- NOTE | 2023-02-19 12:08 | PC.NURSE ---
Called radiology to see about preliminary report, they are checking at this time
== END 2023-02-19 13:34 | disposition home or self-care (01) ==
PROVIDERS: Emergency Provider Emergency Medicine; PCP Family Medicine
DX: N39.0 Urinary tract infection, site not specified (principal); N20.0 Calculus of kidney; F17.200 Nicotine dependence, unspecified, uncomplicated
CPT/HCPCS: 74176; 80053; 81001; 83690; 85025; 96360; 96374; 96375; 99285; J0696; J2405

== ENCOUNTER → 2023-02-24 23:31 | Outpatient (CLI) | payer MEDICAID, SELFPAY | PROVIDERS: PCP Family Medicine; Visit Provider Nurse Practitioner Family | DX: M79.675 Pain in left toe(s) (principal); M79.674 Pain in right toe(s); B35.1 Tinea unguium | CPT/HCPCS: 87102; 87206; 87220 ==

== ENCOUNTER 2023-03-29 16:01 | Emergency (ER) | payer MEDICAID, SELFPAY ==
[2023-03-29 16:10] VITALS: BP 137/89; PULSE 99; RESP 18; TEMP 36.9; O2SAT 98; BMI 31.3
--- NOTE | 2023-03-29 16:10 | EXP.UTC ---
Discharge Plan Disposition Patient Disposition: Home, Self-Care Condition: Good Prescriptions Prescriptions: New ciprofloxacin HCl 0.3 % drops See Rx Instructions .ROUTE .COMPLEX Qty: 5 0RF Rx Instructions: put 1 drp in both eyes every 2hr x2days; then 4 times/day x5days No Action citalopram 20 mg tablet 20 mg PO DAILY estradiol 1 mg tablet 1 mg PO DAILY Rx Instructions: off 1 week; repeat cycle Referrals Follow up/Referrals: Holli Zapata MD [Primary Care Provider] - See instructions Clinical Impressions Clinical Impression: Bilateral conjunctivitis Stand Alone Forms Stand Alone Forms: Work/School Release Instructions Patient Instructions: How to Instill Eye Drops, Conjunctivitis, DI for Conjunctivitis Discharge ED Provider: Nacho Kingsley [facility] General Stated complaint: possible pink eye Time Seen by Provider: 03/29/23 16:10 History of Present Illness Provider Complaint: She states that for the past 1 day she has had bilateral eye irritation and discharge. She denies any injury or foreign body. Related Data Home Medications Medication Instructions Recorded Confirmed citalopram 20 mg tablet 20 mg PO DAILY mood 11/19/22 03/29/23 estradiol 1 mg tablet 1 mg PO DAILY hormones 11/19/22 03/29/23 Previous Rx's Medication Instructions Recorded ciprofloxacin HCl 0.3 % eye drops See Rx Instructions ophthalmic 03/29/23 (eye) .COMPLEX #5 mL Allergies Allergy/AdvReac Type Severity Reaction Status Date / Time Penicillins Allergy Verified 03/29/23 16:15 [facility] Disclaimer: The information contained in this section may have been updated after the patient was seen, as this information can be updated by other users. Medical History Abdominal pain Bronchitis Cancer Colitis Conjunctivitis Conjunctivitis Exposure to COVID-19 virus Left otitis media Sinusitis Surgical History History of section History of cholecystectomy History of hysterectomy History of tubal ligation Social History Smoking Status: Current every day smoker alcohol intake: never substance use type: denies use current occupational status: employed Travel in the last 8 weeks: None ROS Obtained: Yes All systems reviewed & no additional complaints except as documented Constitutional Constitutional: Denies chills and Denies fever(s) Eyes Eyes: Reports eye discharge ENT Ears, Nose, Mouth, and Throat: Denies dizziness, Denies otalgia and Denies sore throat Cardiovascular Cardiovascular: Denies chest pain Respiratory Respiratory: Denies shortness of breath, Denies chest congestion, Denies cough, Denies stridor and Denies wheezing Gastrointestinal Gastrointestingal: Denies nausea or vomiting Musculoskeletal Musculoskeletal: Reports system reviewed and no additional complaints, except as documented and Denies arthralgias Integumentary/Breasts Skin/Breast: Denies rash Neurologic Neurologic: Denies dizziness and Denies paresthesias Allergic/Immunologic Allergic/Immunologic: Denies wheezing Physical Exam General General appearance: alert and in no apparent distress Head Head exam: atraumatic, normocephalic and normal inspection Eye Eye exam: Present PERRL, EOMI, conjunctival redness, conjunctival injection and discharge ENT ENT exam: Present normal exam, normal oropharynx, mucous membranes moist, TM's normal bilaterally and normal external ear exam Neck Neck exam: Present normal inspection, full ROM and trachea midline; Absent meningismus or lymphadenopathy Chest Chest inspection: Present normal inspection and symmetric chest wall rise; Absent tenderness Respiratory Respiratory exam: Present normal lung sounds bilaterally; Absent respiratory distress Cardiovascular Cardiovascular exam: Present regular rate an
[2023-03-29 16:53] VITALS: BP 137/89; PULSE 99; RESP 18; TEMP 36.9; O2SAT 96
== END 2023-03-29 16:52 | disposition home or self-care (01) ==
PROVIDERS: Emergency Provider Nurse Practitioner Family; PCP Family Medicine
DX: H10.89 Other conjunctivitis (principal); F17.210 Nicotine dependence, cigarettes, uncomplicated
CPT/HCPCS: 99212; 99214; G0463

== ENCOUNTER → 2023-07-06 23:59 | Outpatient (CLI) | payer MEDICAID, SELFPAY | PROVIDERS: PCP Student in an Organized Health Care Education/Training Program; Visit Provider Student in an Organized Health Care Education/Training Program | DX: T30.0 Burn of unspecified body region, unspecified degree (principal); B95.7 Other staphylococcus as the cause of diseases classified elsewhere | CPT/HCPCS: 87070; 87077; 87186; 87205 ==

== ENCOUNTER → 2023-07-27 14:30 | Outpatient (CLI) | payer MEDICAID, SELFPAY | PROVIDERS: PCP Nurse Practitioner Family; Visit Provider Nurse Practitioner Family | DX: R50.9 Fever, unspecified (principal); R09.89 Other specified symptoms and signs involving the circulatory and respiratory systems; R51.9 Headache, unspecified; R11.2 Nausea with vomiting, unspecified; R19.7 Diarrhea, unspecified | CPT/HCPCS: 87635 ==

== ENCOUNTER 2024-01-22 09:01 | Outpatient (CLI) | payer OTHER, SELFPAY ==
--- NOTE | 2024-01-22 09:06 | CT_ITS ---
FINAL REPORT CLINICAL HISTORY: KIDNEY STONES; BACK AND PELVIC PAIN COMPARISON: 02/19/2023 FINDINGS: CT OF THE ABDOMEN AND PELVIS WITH CONTRAST Axial CT images of the abdomen and pelvis were obtained after the administration of iv contrast. Coronal and sagittal reformatted images were also obtained and reviewed.This study was performed with techniques to keep radiation doses as low as reasonably achievable (ALARA). Individualized dose reduction techniques using automated exposure control or adjustment of mA and/or kV according to the patient's size were employed. Abdomen: Mild atelectasis is present in the lung bases.. The heart is normal in size. Mild fatty infiltration of the liver is present. The gallbladder has been surgically resected. There is mild extrahepatic biliary ductal dilatation, favor post cholecystectomy change. The spleen is unremarkable. No adrenal mass is present. The pancreas has an unremarkable appearance. There is mild scarring present in the right kidney. The aorta is normal in caliber. There are multiple small and borderline sized retroperitoneal nodes present, which are stable compared to the prior exam, favor reactive. No mass or abnormal fluid collection is seen. Pelvis: The appendix is normal in appearance. The uterus has been surgically resected. The urinary bladder is unremarkable. There is wall thickening of the sigmoid and rectum, worrisome for colitis. There is no evidence of mass or adenopathy. There is no evidence of bowel obstruction. IMPRESSION: Prior cholecystectomy with mild extrahepatic biliary ductal dilatation, favor post cholecystectomy change. Multiple small and bilateral in size retroperitoneal nodes, stable, favor reactive. Wall thickening of the sigmoid and rectum, worrisome for colitis. Reviewed, Interpreted and Dictated by Jose Anne III, MD Transcribed by Lorenza Curiel Authenticated and [facility]
[2024-01-22] MEDS: SODIUM CHLORIDE 0.9% 10ML SYR (RAD ONLY) 10 ML IV (09:39)
[2024-01-22] MEDS: IOPAMIDOL-370 (76%);100ML BOTTLE 75 ML IV (09:39)
== END 2024-01-22 23:59 ==
LOC: RAD 09:02
PROVIDERS: PCP Family Medicine; Visit Provider Registered Nurse
DX: C53.9 Malignant neoplasm of cervix uteri, unspecified (principal)
CPT/HCPCS: 74177; Q9967

== ENCOUNTER 2024-08-18 10:28 | Outpatient (CLI) | payer OTHER, SELFPAY | END 2024-08-18 23:59 | disposition home or self-care (01) | LOC: LAB.DROPOF 08-19 08:30 | PROVIDERS: PCP Student in an Organized Health Care Education/Training Program; Visit Provider Student in an Organized Health Care Education/Training Program | DX: R39.9 Unspecified symptoms and signs involving the genitourinary system (principal) | CPT/HCPCS: 87086; 87088; 87186 ==

== ENCOUNTER 2024-08-24 10:56 | Emergency (ER) | payer OTHER, SELFPAY ==
[2024-08-24 11:10] VITALS: BP 144/93; PULSE 87; RESP 20; TEMP 36.6; O2SAT 99; BMI 29.7
[2024-08-24 11:16] LABS: UTC Influenza A Antigen Negative (Negative); UTC Influenza B Antigen Negative (Negative)
--- NOTE | 2024-08-24 11:32 | ED_ITS ---
Discharge Plan Disposition Patient Disposition: Home, Self-Care Condition: Good Prescriptions Prescriptions: No Action polymyxin B sulf-trimethoprim 10,000 unit- 1 mg/mL drops 1 drp ophthalmic (eye) Q3H 7 Days Qty: 10 0RF Rx Instructions: while awake; do not exceed 6 doses in 24 hours sulfamethoxazole-trimethoprim 800-160 mg tablet 1 tab PO BID Qty: 14 0RF Referrals Follow up/Referrals: Holli Zapata MD [Primary Care Provider] - See instructions Activity Restrictions/Add. Instructions Additional Instructions/Restrictions: *Monitor Temp, Over the counter Motrin or Tylenol as directed/as needed Tylenol every 4 hours and Motrin every 6 hours (as long as your family doctor has told you that you can take it) for fever or pain. and straight to ER if unable to lower temp less than 101.0 after medication given *Warm salt water gargles may help to soothe the throat *Throat Lozenges? *Warm fluids like tea with honey may help to soothe the throat? *Sleep elevated *Humidifier/Vaporizer Follow up IMMEDIATELY for new or worsening symptoms or no Noticeable improvement over the next 48-72 hours. 911 for difficulty breathing or swallowing You were tested for today for Upper Respiratory Panel with COVID19 your test result should be back in the next 24hours, you may check for your results on the [facility] [employer] [facility] Clinical Impressions Clinical Impression: Viral syndrome Stand Alone Forms Stand Alone Forms: Work/School Release Instructions Patient Instructions: DI for Viral Syndrome Print Language Print Language: Slovak Discharge ED Provider: Amy Berkowitz [facility] [place] General Stated complaint: fever, chills body aches, headache Mode of Arrival: Ambulatory Source of Information: Patient Time Seen by Provider: 08/24/24 11:32 Description of Symptoms (Recalled from Triage Doc. 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 States that she started on Thursday with fever, chills, body aches, and headache States that today she was still having symptoms and there is alot going around at the daycare Related Data Previous Rx's ?Medication ?Instructions ?Recorded polymyxin B sulfate 10,000 1 drp ophthalmic (eye) Q3H 7 days 08/18/24 unit-trimethoprim 1 mg/mL eye drops #10 mL sulfamethoxazole 800 1 tab PO BID #14 tabs 08/22/24 mg-trimethoprim 160 mg tablet Allergies Allergy/AdvReac Type Severity Reaction Status Date / Time Penicillins Allergy Verified 08/18/24 10:30 Worker's Comp Is this a Worker's Comp case?: No [facility] Disclaimer: The information contained in this section may have been updated after the patient was seen, as this information can be updated by other users. Medical History Callus of foot Onychomycosis Ingrown toenail Incurvated nail Cold extremities Bilateral conjunctivitis Total avulsion of nail plate Left nephrolithiasis Pain due to onychomycosis of toenails of both feet Tobacco abuse Pain due to onychomycosis of nail Decreased pedal pulses Colitis Abdominal pain Conjunctivitis Cancer Left otitis media Conjunctivitis Bronchitis Exposure to COVID-19 virus Sinusitis Surgical History History of tubal ligation History of hysterectomy History of section History of cholecystectomy Family History Other No significant family history Social History Smoking Status: Current every day smoker alcohol intake: never substance use type: denies use current occupational status: employed Travel in the last 8 weeks: None ROS Obtained: Yes All systems reviewed & no additional complaints except as documented and Yes Systems reviewed as appropriate & no additional complaints except as documented Constitutional Constitutional: Reports system reviewed and no additional complaints, except as documented, Reports as per HPI, Reports body ache, Reports chills, Reports fever(s) and Reports headache(s) ENT Ears, Nose, Mouth, and Throat: Reports system reviewed and no additional complaints, except as documented, Reports as per HPI, Reports headache(s), Reports nasal congestion and Reports nasal discharge Cardiovascular Cardiovascular: Reports system reviewed and no additional complaints, except as documented and Reports as per HPI Respiratory Respiratory: Reports system reviewed and no additional complaints, except as documented and Reports as per HPI Gastrointestinal Gastrointestingal: Reports system reviewed and no additional complaints, except as documented and as per HPI Neurologic Neurologic: Reports headache(s) Physical Exam General General appearance: alert and in no apparent distress ENT ENT exam: Present mucous membranes moist Respiratory Respiratory exam: Present normal lung sounds bilaterally; Absent respiratory distress or wheezes Cardiovascular Cardiovascular exam: Present regular rate, normal rhythm and normal heart sounds Abdominal Exam Abdominal exam: Present soft and normal bowel sounds; Absent distention or tenderness Neurological Exam Neurological exam: Present alert, oriented X3 and normal gait Medical Decision Making Medical Records Screening: Per USPSTF and CDC recommendations, given the prevalence of disease in our region, it is our hospital?s policy to screen for HIV and viral Hepatitis for all patients aged 18 and over and those with ongoing risk factors. Hugh Inquiry Pt receiving controlled substance: No Hugh was queried for this patient: No Vital Signs: 08/24/24 11:10 Temperature 97.9 F Temperature Source Oral Pulse Rate [Left Radial] 87 Respiratory Rate 20 Blood Pressure [Left Arm] 144/93 H Blood Pressure Mean [Left Arm] 110 02 Sat by Pulse Oximetry 99 Lab Data Lab results reviewed: Yes I reviewed the patient's lab results. Lab Results 08/24/24 11:14: Influenza Type A Ag Negative, Influenza Type B Ag Negative Orders (Tests/Meds): ORDERS Category Date Time Status Full Resp Panel w/COVID ([facility]) Routine Lab 08/24/24 11:32 Ordered
[2024-08-24 11:41] VITALS: BP 144/93; PULSE 87; RESP 20; TEMP 36.6
[2024-08-24 11:47] LABS: Adenovirus,PCR Not Detected (NotDetected); Bordetella Pertussis Not Detected (NotDetected); Chlamydophila Pneumoniae, PCR Not Detected (NotDetected); Coronavirus 19, PCR Not Detected (NotDetected); Coronavirus 229E Not Detected (NotDetected); Coronavirus NL63 Not Detected (NotDetected); Coronavirus OC43 Not Detected (NotDetected); Coronovirus HKU1,PCR Not Detected (NotDetected); Human Metapneumovirus Not Detected (NotDetected); Influenza A, PCR Not Detected (NotDetected); Influenza AH1, 2009 Not Detected (NotDetected); Influenza AH1, PCR Not Detected (NotDetected); Influenza AH3,PCR Not Detected (NotDetected); Influenza B, PCR Not Detected (NotDetected); Mycoplasma Pneumoniae, PCR Not Detected (NotDetected); Parainfluenza 1, PCR Not Detected (NotDetected); Parainfluenza 2, PCR Not Detected (NotDetected); Parainfluenza 3, PCR Not Detected (NotDetected); Parainfluenza 4, PCR Not Detected (NotDetected); Respiratory Syncytial Virus Not Detected (NotDetected); Rhinovirus/Enterovirus Not Detected (NotDetected)
== END 2024-08-24 11:45 | disposition home or self-care (01) ==
PROVIDERS: Emergency Provider Nurse Practitioner; PCP Family Medicine
DX: B34.9 Viral infection, unspecified (principal); R50.9 Fever, unspecified; R51.9 Headache, unspecified; M79.10 Myalgia, unspecified site
CPT/HCPCS: 87265; 87486; 87581; 87632; 87635; 87804; 99212; G0381

== ENCOUNTER 2025-02-28 15:18 | Outpatient (CLI) | payer OTHER, SELFPAY | END 2025-02-28 23:59 | disposition home or self-care (01) | LOC: LAB.DROPOF 03-01 10:10 | PROVIDERS: PCP Nurse Practitioner; Visit Provider Nurse Practitioner | DX: R30.0 Dysuria (principal) | CPT/HCPCS: 87086 ==